=== PATIENT | female | born 1945 | race Caucasian/White ===

== ENCOUNTER 2021-05-20 13:14 | Emergency (ER) | payer BC, MEDICARE, OTHER ==
[2021-05-20 13:55] VITALS: BP 115/72; PULSE 70; TEMP 97.6; BMI 29.5
[2021-05-20 15:35] LABS: BASO % 0.8 % (0-2.0); EOS % 1.3 % (0-4.5); HEMATOCRIT 39.2 % (32.4-45.2); HEMOGLOBIN 13.1 GM/dL (10.7-15.3); LYMPH % 28.4 % (8-40); MCH 33.3 pg (25.7-33.7); MCHC 33.5 g/dl (32.0-36.0); MEAN CELL VOLUME 99.3 fl (80-96); MEAN PLT VOLUME 7.2 fl (7.5-11.1); MONO % 5.5 % (3.8-10.2); PLATELET COUNT 232 10^3/uL (134-434); RBC 3.94 M/mm3 (3.60-5.2); RDW 13.4 % (11.6-15.6); WHITE BLOOD COUNT 4.8 K/mm3 (4.0-10.0)
[2021-05-20 15:53] LABS: CALCIUM 9.4 mg/dL (8.5-10.1)
[2021-05-20 15:54] LABS: BLOOD UREA NITROGEN 13.2 mg/dL (7-18)
[2021-05-20 15:57] LABS: CREATININE 0.9 mg/dL (0.55-1.3)
[2021-05-20 15:58] LABS: BILIRUBIN,TOTAL 0.5 mg/dL (0.2-1); TOT PROT 7.9 g/dl (6.4-8.2)
== END 2021-05-20 18:53 | disposition home or self-care (01) ==
LOC: JERFT 13:14
DX: S20.211A Contusion of right front wall of thorax, initial encounter (principal); R07.82 Intercostal pain; W01.0XXA Fall on same level from slipping, tripping and stumbling without subsequent striking against object, initial encounter
CPT/HCPCS: 36415; 71260-TC; 74177-TC; 80053; 85025; 99285-25; Q9967